=== PATIENT | male | born 1955 | race Caucasian/White ===

== ENCOUNTER 2018-07-25 05:50 | Inpatient (IN) | payer BC, MEDICAID ==
[~2018-07-25] VITALS: Ht 188 cm; Wt 159.6 kg
[2018-07-25] MEDS ORDERED: SODIUM CHLORIDE FLUSH 10ML SYR IVF ONE (06:00)
--- NOTE | 2018-07-25 06:01 | NUR ---
62 Y/O MALE BIB EMS FROM [facility] FOR SOB. THE PT REPORTED BEING SOB FOR THE PAST FEW DAYS, WORSE YESTERDAY, WENT IN TO [place] FOR EVALUATION. PT HAS A HX OF COPD/CHF, IS ON HOME O2 @ 10LPM, HE PRESENTED TO ED THERE SOB, SATS IN 80s ON 15LPM NRB. HE WAS PLACED ON BIPAP AND TRANSFERRED HERE. HE RECEIVED ALBULTEROL TX X3, DUONEB X3, 125MG OF SOLUMEDROL, 0.25MG OF TERBUTALINE AT [place]. PT WAS TRANSFERRED ON BIPAP, SATS 93% ON ARRIVAL, INCREASED WORK OF BREATHING NOTED UPON ARRIVAL, LABORED, RR 26, SKIN PALE/WARM/DRY. RT AT BEDSIDE, PT PLACED ON BIPAP AT 16/8. DR. BLOOD AT BEDSIDE EVALUATING PT. PT TOLERATING BIPAP WELL, LUNG SOUNDS DIMINISHED IN ALL FUENTES. SAT WITH BIPAP IS 98%. BILATERAL 18G IVS PRESENT. SINUS ARRYTHMIA ON MONITOR AT 97. NO ECTOPY OR ST CHANGES PRESENT.
--- NOTE | 2018-07-25 06:17 | NUR ---
PT TOLERATING BIPAP WELL, HR HAS DECREASED AND WORK OF BREATHING LESSENED. RR 22 SATS 98%
--- NOTE | 2018-07-25 06:22 | NUR ---
LAB AT BEDSIDE DRAWING BLOOD GASES
[2018-07-25 06:25] LABS: BASOPHILS % (AUTO) 0 % (0-1); EOSINOPHILS % (AUTO) 0 % (1-7); LYMPHOCYTES # (AUTO) 0.26 x10^3/uL (1-3.4); LYMPHOCYTES % (AUTO) 5 % (22-44); MD NO; MEAN CORPUSCULAR HEMOGLOBIN 31.2 pg (27.5-34.5); MEAN CORPUSCULAR HGB CONC 32.6 g/dL (33.2-36.2); MEAN CORPUSCULAR VOLUME 95.6 fL (81-97); MEAN PLATELET VOLUME 8.3 fL (7.4-10.4); MONOCYTES # (AUTO) 0.04 x10^3/uL (0.2-0.8); MONOCYTES % (AUTO) 1 % (2-9); NEUTROPHILS # (AUTO) 4.82 x10^3/uL (1.8-6.8); NEUTROPHILS % (AUTO) 94 % (42-75); PLATELET COUNT 163 x10^3/uL (130-400); RED BLOOD COUNT 4.71 x10^6/uL (4.38-5.82); RED CELL DISTRIBUTION WIDTH 15.6 % (9.4-14.8)
--- NOTE | 2018-07-25 06:28 | NUR ---
XRAY AT BEDSIDE
[2018-07-25 06:34] LABS: ALANINE AMINOTRANSFERASE 16 U/L (12-78); ALBUMIN 3.5 g/dL (3.4-5.0); ANION GAP 2 mmol/L (5-15); CALCIUM 9.2 mg/dL (8.5-10.1); CHLORIDE 100 mmol/L (98-107); CREATININE 1.25 mg/dL (0.7-1.3)
[2018-07-25 06:39] LABS: ALKALINE PHOSPHATASE 58 U/L (45-117); BILIRUBIN,TOTAL 0.5 mg/dL (0.2-1.0); TOTAL PROTEIN 9.3 g/dL (6.4-8.2); TROPONIN I 0.018 ng/mL (0.000-0.045)
--- NOTE | 2018-07-25 06:51 | NUR ---
RECEIVED BEDSIDE REPORT FROM AL HUSAIN. PT RESTING ON GURNEY. PT TOLERATING BIPAP. FAMILY JUST ARRIVED AND IS BEDSIDE. NO ACUTE DISTRESS NOTED. VSS.
[2018-07-25] MEDS ORDERED: FUROSEMIDE 20 MG/2 ML ONE (07:30)
[2018-07-25] MEDS ORDERED: FUROSEMIDE 40 MG/4 ML IV ONE (07:30)
--- NOTE | 2018-07-25 07:30 | NUR ---
DISCUSSED ABX THERAPY WELL DIURETICS WITH DR. BLOOD. NO ORDER FOR ABX AT THIS TIME. LASIX ORDER WAS RECEIVED.
[2018-07-25] MEDS ORDERED: LASIX (07:45)
[2018-07-25] MEDS ORDERED: CHOL100011 PO (07:45)
[2018-07-25] MEDS ORDERED: LEVO88TA4 PO (07:45)
[2018-07-25] MEDS ORDERED: ALBU6.7H INH (07:45)
[2018-07-25] MEDS ORDERED: ASPI-515 PO (07:45)
--- NOTE | 2018-07-25 07:45 | NUR ---
PT SITTING ON EDGE OF BED. TOLERATING BIPAP. FAMILY BEDSIDE. PT ABLE TO SPEAK UNDER MASK. NO NEEDS REQUESTED AT THIS TIME.
--- NOTE | 2018-07-25 07:58 | NUR ---
DR. SPENCER BEDSIDE. VERBAL ORDERS FOR BLOOD CULTURES. ALSO STATED HE WILL PUT IN ABX ORDERS.
--- NOTE | 2018-07-25 07:59 | NUR ---
DR. TJ PACK. REQUESTING BLOOD CULTURES X 2 WELL ABX THERAPY. DISCUSS[address] WITH DR. BLOOD.
[2018-07-25] MEDS ORDERED: SODIUM CHLORIDE FLUSH 10ML SYR IVF PRN (08:00)
[2018-07-25] MEDS ORDERED: CEFTRIAXONE PMX 1GM/50ML 50 ML ONE (08:01)
--- NOTE | 2018-07-25 08:04 | NUR ---
PT EDUCATED REGARDING NPO STATUS. THIS RN WAS WALKING AWAY, PT WAS STARTING TO DRINK SPRITE. RE-EDUCATED PT AND FAMILY. RT BEDSIDE.
--- NOTE | 2018-07-25 08:13 | NUR ---
REPORT TO AL LEON. ALL QUESTIONS ANSWERED.
--- NOTE | 2018-07-25 08:25 | NUR ---
LAB BEDSIDE. ABG COMPLETED. BC X 2 COMPLETED. ADMINISTER ABX PER EMAR.
[2018-07-25] MEDS ORDERED: AZITHROMYCIN 500 MG in SODIUM CHLORIDE 0.9% 250 ML IVPB ONE (08:30)
[2018-07-25] MEDS ORDERED: CEFTRIAXONE 1,000 MG in SODIUM CHLORIDE 0.9% 50 ML IVPB ONE (08:30)
--- NOTE | 2018-07-25 08:46 | NUR ---
PT TRANSPORTED TO FLOOR. PT LEFT WITH ALL PERSONAL BELONGINGS
[2018-07-25] MEDS ORDERED: ACETAMINOPHEN 325 MG TABLET PO PRN (09:00)
[2018-07-25] MEDS ORDERED: POLYETHYLENE GLYCOL 17 GM PACKET PO PRN (09:00)
[2018-07-25] MEDS ORDERED: BISACODYL 10 MG SUPP PR PRN (09:00)
[2018-07-25] MEDS ORDERED: hydrALAzine 20 MG/ML, 1ML IVPush PRN (09:00)
[2018-07-25] MEDS: FAMOTIDINE 20 MG/2 ML IVPush SCH ×2 (09:10→20:18)
[2018-07-25] MEDS: ENOXAPARIN 40 MG/0.4 ML SQ SCH (09:11)
[2018-07-25] MEDS: methylPREDNISolone SOD SUCC 125 MG/2 ML IVPush SCH ×3 (09:12→20:17)
[2018-07-25 09:30] VITALS: BP 142/54
[2018-07-25] MEDS ORDERED: ALBUTEROL SULFATE 2.5 MG/3 ML NPPB PRN ×2 (10:00→12:30)
[2018-07-25] MEDS: ALBUTEROL/IPRATROPIUM 2.5MG/0.5MG, 3 ML NPPB SCH ×3 (10:25→18:48)
[2018-07-25] MEDS: LEVOTHYROXINE 88 MCG TABLET PO SCH (13:24)
[2018-07-25] MEDS: FUROSEMIDE 20 MG/2 ML IV SCH (17:30)
[2018-07-26] MEDS: FUROSEMIDE 20 MG/2 ML IV SCH ×3 (01:01→17:18)
[2018-07-26] MEDS: methylPREDNISolone SOD SUCC 125 MG/2 ML IVPush SCH ×4 (03:33→21:32)
[2018-07-26 04:00] VITALS: BP 126/60
[2018-07-26 04:36] LABS: BASOPHILS % (AUTO) 0 % (0-1); EOSINOPHILS # (AUTO) 0.01 x10^3/uL (0-0.4); EOSINOPHILS % (AUTO) 0 % (1-7); LYMPHOCYTES # (AUTO) 0.47 x10^3/uL (1-3.4); LYMPHOCYTES % (AUTO) 6 % (22-44); MD NO; MEAN CORPUSCULAR HEMOGLOBIN 31.3 pg (27.5-34.5); MEAN CORPUSCULAR VOLUME 94.8 fL (81-97); MEAN PLATELET VOLUME 8.1 fL (7.4-10.4); MONOCYTES # (AUTO) 0.08 x10^3/uL (0.2-0.8); MONOCYTES % (AUTO) 1 % (2-9); NEUTROPHILS # (AUTO) 7.99 x10^3/uL (1.8-6.8); NEUTROPHILS % (AUTO) 94 % (42-75); PLATELET COUNT 186 x10^3/uL (130-400); RED BLOOD COUNT 4.46 x10^6/uL (4.38-5.82); RED CELL DISTRIBUTION WIDTH 15.5 % (9.4-14.8)
[2018-07-26 04:40] LABS: ANION GAP 3 mmol/L (5-15); CALCIUM 8.7 mg/dL (8.5-10.1); CHLORIDE 99 mmol/L (98-107)
[2018-07-26 04:43] LABS: ALANINE AMINOTRANSFERASE 13 U/L (12-78); ALKALINE PHOSPHATASE 45 U/L (45-117); BILIRUBIN,TOTAL 0.4 mg/dL (0.2-1.0); CREATININE 1.44 mg/dL (0.7-1.3); TOTAL PROTEIN 7.7 g/dL (6.4-8.2)
[2018-07-26 04:49] LABS: HEMOGLOBIN A1C 5.7 % (4.2-6.3)
[2018-07-26] MEDS: LEVOTHYROXINE 88 MCG TABLET PO SCH (05:31)
[2018-07-26] MEDS: ALBUTEROL/IPRATROPIUM 2.5MG/0.5MG, 3 ML NPPB SCH ×4 (07:30→18:52)
[2018-07-26] MEDS: FAMOTIDINE 20 MG/2 ML IVPush SCH ×2 (09:18→21:32)
[2018-07-26] MEDS: ENOXAPARIN 40 MG/0.4 ML SQ SCH (09:19)
[2018-07-26] MEDS: CHOLECALCIFEROL 1,000 UNIT TABLET PO SCH (09:20)
[2018-07-26] MEDS: ASPIRIN 81 MG TABLET EC PO SCH (09:21)
[2018-07-27] MEDS: FUROSEMIDE 20 MG/2 ML IV SCH ×3 (02:15→18:27)
[2018-07-27] MEDS: methylPREDNISolone SOD SUCC 125 MG/2 ML IVPush SCH ×2 (03:42→09:05)
[2018-07-27 04:00] VITALS: BP 137/66
[2018-07-27 04:38] LABS: BASOPHILS % (AUTO) 0 % (0-1); EOSINOPHILS % (AUTO) 0 % (1-7); LYMPHOCYTES # (AUTO) 0.45 x10^3/uL (1-3.4); LYMPHOCYTES % (AUTO) 5 % (22-44); MD NO; MEAN CORPUSCULAR HEMOGLOBIN 31.1 pg (27.5-34.5); MEAN CORPUSCULAR HGB CONC 32.6 g/dL (33.2-36.2); MEAN CORPUSCULAR VOLUME 95.4 fL (81-97); MEAN PLATELET VOLUME 8.5 fL (7.4-10.4); MONOCYTES % (AUTO) 1 % (2-9); NEUTROPHILS % (AUTO) 94 % (42-75); PLATELET COUNT 207 x10^3/uL (130-400); RED BLOOD COUNT 4.63 x10^6/uL (4.38-5.82); RED CELL DISTRIBUTION WIDTH 15.8 % (9.4-14.8)
[2018-07-27 04:49] LABS: ANION GAP 3 mmol/L (5-15); CALCIUM 8.7 mg/dL (8.5-10.1); CHLORIDE 97 mmol/L (98-107)
[2018-07-27 04:53] LABS: CREATININE 1.55 mg/dL (0.7-1.3)
[2018-07-27] MEDS: LEVOTHYROXINE 88 MCG TABLET PO SCH (05:13)
[2018-07-27 05:42] LABS: FIO2 26 %
[2018-07-27] MEDS: ALBUTEROL/IPRATROPIUM 2.5MG/0.5MG, 3 ML NPPB SCH ×4 (07:45→19:10)
[2018-07-27] MEDS: ENOXAPARIN 40 MG/0.4 ML SQ SCH ×2 (09:04→19:59)
[2018-07-27] MEDS: FAMOTIDINE 20 MG/2 ML IVPush SCH ×2 (09:05→20:00)
[2018-07-27] MEDS: CHOLECALCIFEROL 1,000 UNIT TABLET PO SCH (09:05)
[2018-07-27] MEDS: ASPIRIN 81 MG TABLET EC PO SCH (09:05)
[2018-07-27] MEDS: methylPREDNISolone SOD SUCC 40 MG/ML IVPush SCH ×2 (15:00→20:00)
[2018-07-28] MEDS: FUROSEMIDE 20 MG/2 ML IV SCH (01:00)
[2018-07-28 04:00] VITALS: BP 141/75
[2018-07-28] MEDS: methylPREDNISolone SOD SUCC 40 MG/ML IVPush SCH ×4 (04:06→21:25)
[2018-07-28 04:24] LABS: BASOPHILS # (AUTO) 0.01 x10^3/uL (0-0.1); BASOPHILS % (AUTO) 0 % (0-1); EOSINOPHILS % (AUTO) 0 % (1-7); LYMPHOCYTES # (AUTO) 0.56 x10^3/uL (1-3.4); LYMPHOCYTES % (AUTO) 6 % (22-44); MD NO; MEAN CORPUSCULAR HEMOGLOBIN 31.1 pg (27.5-34.5); MEAN CORPUSCULAR HGB CONC 32.7 g/dL (33.2-36.2); MEAN CORPUSCULAR VOLUME 95.2 fL (81-97); MEAN PLATELET VOLUME 8.4 fL (7.4-10.4); MONOCYTES % (AUTO) 3 % (2-9); NEUTROPHILS # (AUTO) 8.73 x10^3/uL (1.8-6.8); NEUTROPHILS % (AUTO) 91 % (42-75); PLATELET COUNT 203 x10^3/uL (130-400); RED BLOOD COUNT 4.74 x10^6/uL (4.38-5.82); RED CELL DISTRIBUTION WIDTH 15.8 % (9.4-14.8)
[2018-07-28 04:39] LABS: ANION GAP 3 mmol/L (5-15); CALCIUM 8.8 mg/dL (8.5-10.1); CHLORIDE 94 mmol/L (98-107); CREATININE 1.59 mg/dL (0.7-1.3)
[2018-07-28] MEDS: LEVOTHYROXINE 88 MCG TABLET PO SCH (06:12)
[2018-07-28] MEDS: ALBUTEROL/IPRATROPIUM 2.5MG/0.5MG, 3 ML NPPB SCH ×4 (07:30→20:00)
[2018-07-28] MEDS: ENOXAPARIN 40 MG/0.4 ML SQ SCH ×2 (11:02→21:25)
[2018-07-28] MEDS: CHOLECALCIFEROL 1,000 UNIT TABLET PO SCH (11:03)
[2018-07-28] MEDS: ASPIRIN 81 MG TABLET EC PO SCH (11:03)
[2018-07-28] MEDS: FAMOTIDINE 20 MG/2 ML IVPush SCH ×2 (11:03→21:25)
[2018-07-28] MEDS ORDERED: MIDAZOLAM 1 MG/ML, 2ML ONE (18:02)
[2018-07-28 19:31] VITALS: BP 180/66
[2018-07-28 19:48] VITALS: BP 144/66
[2018-07-29] MEDS: methylPREDNISolone SOD SUCC 40 MG/ML IVPush SCH ×3 (03:51→17:48)
[2018-07-29 03:55] VITALS: BP 159/81
[2018-07-29 06:05] LABS: ANION GAP 3 mmol/L (5-15); CALCIUM 8.7 mg/dL (8.5-10.1); CHLORIDE 96 mmol/L (98-107); CREATININE 1.36 mg/dL (0.7-1.3)
[2018-07-29] MEDS: ALBUTEROL/IPRATROPIUM 2.5MG/0.5MG, 3 ML NPPB SCH ×4 (08:14→19:57)
[2018-07-29 09:25] VITALS: BP 167/61
[2018-07-29] MEDS: FUROSEMIDE 40 MG/4 ML IV SCH (09:30)
[2018-07-29] MEDS: LEVOTHYROXINE 88 MCG TABLET PO SCH (09:37)
[2018-07-29] MEDS: CHOLECALCIFEROL 1,000 UNIT TABLET PO SCH (09:37)
[2018-07-29] MEDS: ASPIRIN 81 MG TABLET EC PO SCH (09:37)
[2018-07-29] MEDS: FAMOTIDINE 20 MG TABLET PO SCH ×2 (09:37→21:00)
[2018-07-29] MEDS: ENOXAPARIN 40 MG/0.4 ML SQ SCH ×2 (09:38→21:00)
[2018-07-29 15:30] VITALS: BP 136/65
[2018-07-29 20:07] VITALS: BP 160/87
[2018-07-30] MEDS: methylPREDNISolone SOD SUCC 40 MG/ML IVPush SCH ×3 (02:13→16:32)
[2018-07-30 02:37] VITALS: BP 128/58
[2018-07-30] MEDS: LEVOTHYROXINE 88 MCG TABLET PO SCH (05:46)
[2018-07-30 06:24] LABS: CHLORIDE 94 mmol/L (98-107)
[2018-07-30 06:29] LABS: ALBUMIN 3.2 g/dL (3.4-5.0); ANION GAP 5 mmol/L (5-15); CALCIUM 8.8 mg/dL (8.5-10.1); CREATININE 1.46 mg/dL (0.7-1.3)
[2018-07-30] MEDS: ALBUTEROL/IPRATROPIUM 2.5MG/0.5MG, 3 ML NPPB SCH ×2 (06:50→21:00)
[2018-07-30 09:00] VITALS: BP 132/62
[2018-07-30] MEDS: FAMOTIDINE 20 MG TABLET PO SCH ×2 (09:33→20:59)
[2018-07-30] MEDS: FUROSEMIDE 40 MG/4 ML IV SCH (09:33)
[2018-07-30] MEDS: ASPIRIN 81 MG TABLET EC PO SCH (09:33)
[2018-07-30] MEDS: CHOLECALCIFEROL 1,000 UNIT TABLET PO SCH (09:34)
[2018-07-30] MEDS: ENOXAPARIN 40 MG/0.4 ML SQ SCH ×2 (09:34→20:59)
[2018-07-30 13:33] VITALS: BP 126/68
[2018-07-30 19:21] VITALS: BP 159/85
[2018-07-31] MEDS: methylPREDNISolone SOD SUCC 40 MG/ML IVPush SCH ×2 (00:40→10:32)
[2018-07-31 00:47] VITALS: BP 166/89
[2018-07-31] MEDS: LEVOTHYROXINE 88 MCG TABLET PO SCH (05:20)
[2018-07-31 05:50] LABS: BASOPHILS # (AUTO) 0.02 x10^3/uL (0-0.1); BASOPHILS % (AUTO) 0 % (0-1); EOSINOPHILS % (AUTO) 0 % (1-7); LYMPHOCYTES # (AUTO) 0.37 x10^3/uL (1-3.4); LYMPHOCYTES % (AUTO) 4 % (22-44); MD NO; MEAN CORPUSCULAR HEMOGLOBIN 31.2 pg (27.5-34.5); MEAN CORPUSCULAR VOLUME 94.7 fL (81-97); MEAN PLATELET VOLUME 8.2 fL (7.4-10.4); MONOCYTES # (AUTO) 0.22 x10^3/uL (0.2-0.8); MONOCYTES % (AUTO) 2 % (2-9); NEUTROPHILS # (AUTO) 9.07 x10^3/uL (1.8-6.8); NEUTROPHILS % (AUTO) 94 % (42-75); PLATELET COUNT 171 x10^3/uL (130-400); RED BLOOD COUNT 4.88 x10^6/uL (4.38-5.82); RED CELL DISTRIBUTION WIDTH 15.3 % (9.4-14.8)
[2018-07-31 06:07] LABS: CHLORIDE 96 mmol/L (98-107)
[2018-07-31 06:14] LABS: ALANINE AMINOTRANSFERASE 40 U/L (12-78); ALBUMIN 2.7 g/dL (3.4-5.0); ALKALINE PHOSPHATASE 40 U/L (45-117); ANION GAP 5 mmol/L (5-15); BILIRUBIN,TOTAL 0.9 mg/dL (0.2-1.0); CREATININE 1.72 mg/dL (0.7-1.3); TOTAL PROTEIN 6.5 g/dL (6.4-8.2)
[2018-07-31] MEDS: ALBUTEROL/IPRATROPIUM 2.5MG/0.5MG, 3 ML NPPB SCH (07:35)
[2018-07-31 08:11] VITALS: BP 160/71
[2018-07-31] MEDS: CHOLECALCIFEROL 1,000 UNIT TABLET PO SCH (10:31)
[2018-07-31] MEDS: FAMOTIDINE 20 MG TABLET PO SCH (10:31)
[2018-07-31] MEDS: FUROSEMIDE 40 MG/4 ML IV SCH (10:32)
[2018-07-31] MEDS: ASPIRIN 81 MG TABLET EC PO SCH (10:32)
[2018-07-31] MEDS: ENOXAPARIN 40 MG/0.4 ML SQ SCH (10:33)
[2018-07-31] MEDS ORDERED: POTA10TA11 PO (12:18)
[2018-07-31] MEDS ORDERED: FURO40TA6 PO (12:18)
[2018-07-31] MEDS ORDERED: LEVO88TA4 PO (12:18)
[2018-07-31 12:50] VITALS: BP 152/69
== END 2018-07-31 14:02 | disposition home or self-care (01) | DRG 291 ==
LOC: ED 06:47 → EDIP 07:32 → CCU 08:47 → 5SO 07-28 18:03 → DCLOUNGE 07-31 13:47
PROVIDERS: ADMIT Hospitalist; ATTEND Hospitalist
PROC: 5A09357 Assistance with Respiratory Ventilation, Less than 24 Consecutive Hours, Continuous Positive Airway Pressure (ICD-10-PCS; principal; 2018-07-25)
PROC: 5A09357 Assistance with Respiratory Ventilation, Less than 24 Consecutive Hours, Continuous Positive Airway Pressure (ICD-10-PCS; 2018-07-26)
PROC: 5A09357 Assistance with Respiratory Ventilation, Less than 24 Consecutive Hours, Continuous Positive Airway Pressure (ICD-10-PCS; 2018-07-27)
PROC: 5A09357 Assistance with Respiratory Ventilation, Less than 24 Consecutive Hours, Continuous Positive Airway Pressure (ICD-10-PCS; 2018-07-28)
PROC: 5A09357 Assistance with Respiratory Ventilation, Less than 24 Consecutive Hours, Continuous Positive Airway Pressure (ICD-10-PCS; 2018-07-29)
PROC: 5A09357 Assistance with Respiratory Ventilation, Less than 24 Consecutive Hours, Continuous Positive Airway Pressure (ICD-10-PCS; 2018-07-30)
PROC: 5A09357 Assistance with Respiratory Ventilation, Less than 24 Consecutive Hours, Continuous Positive Airway Pressure (ICD-10-PCS; 2018-07-31)
DX: I11.0 Hypertensive heart disease with heart failure (principal); J96.21 Acute and chronic respiratory failure with hypoxia; J96.22 Acute and chronic respiratory failure with hypercapnia; J44.1 Chronic obstructive pulmonary disease with (acute) exacerbation; Z68.42 Body mass index [BMI] 45.0-49.9, adult; E66.2 Morbid (severe) obesity with alveolar hypoventilation; E46 Unspecified protein-calorie malnutrition; J98.11 Atelectasis; I50.23 Acute on chronic systolic (congestive) heart failure; I50.1 Left ventricular failure, unspecified; E03.9 Hypothyroidism, unspecified; E11.9 Type 2 diabetes mellitus without complications; E78.5 Hyperlipidemia, unspecified; F12.90 Cannabis use, unspecified, uncomplicated; I27.29 Other secondary pulmonary hypertension; I44.0 Atrioventricular block, first degree; I45.10 Unspecified right bundle-branch block; Z91.14 Patient's other noncompliance with medication regimen; Z87.891 Personal history of nicotine dependence; Z99.81 Dependence on supplemental oxygen
CPT/HCPCS: 36415; 36600; 84145; 99291; J3490; J7620; 71045; 80048; 80053; 82040; 82803; 83036; 83605; 83735; 83880; 84100; 84484; 85025; 87040; 87081; 93005; 93970; 94640; 94660; 96365; 96375; C8929; G0378; J0456; J0696; J1650; J1940; J0360; J2920; J2930; J7050